=== PATIENT | female | born 1995 | race Caucasian/White ===

== ENCOUNTER 2018-02-11 08:52 | Emergency (ER) | payer OTHER ==
--- NOTE | 2018-02-11 08:55 | EDM.PDOC ---
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 Pt states that she fell well all morning. 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 Pt states that she felt a brief wave of nausea and lightheadedness that lasted a few seconds. Now pt states that she feels completely well and normal. She denies headache, orthostatic dizziness, chest pain, fever, chills, abdominal pain, heavy periods, palpitations, or any other symptoms. Onset: Today, Sudden Duration: Resolved Prior to Arrival Location: Reports: Generalized Improves with: Reports: None Worsens with: Reports: None Associated Symptoms: Reports: No Other Symptoms - Related Data Allergies Allergy/AdvReac Type Severity Reaction Status Date / Time No Known Allergies Allergy Verified 02/11/18 08:53 Home Meds: Home Meds ALPRAZolam [Xanax] 0.25 mg PO Q4HR PRN 02/11/18 [History] Escitalopram [Lexapro] 10 mg PO DAILY 02/11/18 [History] Propranolol [Inderal] 10 mg PO DAILY 02/11/18 [History] Past Medical History - Past Health History Medical/Surgical History: Denies Medical/Surgical History Psychiatric History: Reports: Anxiety Social & Family History - Family History Family Medical History: Noncontributory - Tobacco Use Smoking Status *Q: Never Smoker - Living Situation & Occupation Occupation: Employed ED ROS GENERAL - Review of Systems Review Of Systems: ROS reveals no pertinent complaints other than HPI. ED EXAM, GENERAL - Physical Exam Exam: See Below Exam Limited By: No Limitations General Appearance: Alert, WD/WN, No Apparent Distress Eye Exam: Bilateral Eye: EOMI, Normal Inspection Ears: Hearing Grossly Normal Nose: Normal Inspection, Normal Mucosa, No Blood Throat/Mouth: Normal Inspection, Normal Lips, Normal Teeth, Normal Gums, Normal Oropharynx, Normal Voice, No Airway Compromise Head: Atraumatic, Normocephalic Neck: Normal Inspection, Full Range of Motion Respiratory/Chest: No Respiratory Distress, Lungs Clear, Normal Breath Sounds, No Accessory Muscle Use, Chest Non-Tender Cardiovascular: Normal Peripheral Pulses, Regular Rate, Rhythm, No Edema, No Gallop, No JVD, No Murmur, No Rub GI/Abdominal: Normal Bowel Sounds, Soft, Non-Tender (Female) Exam: Deferred Rectal (Female) Exam: Deferred Back Exam: Normal Inspection, Full Range of Motion Extremities: Normal Inspection, Normal Range of Motion, Non-Tender, No Pedal Edema, Normal Capillary Refill. No: Star's Sign Neurological: Alert, Oriented, CN II-XII Intact, Normal Cognition, Normal Gait, No Motor/Sensory Deficits Psychiatric: Normal Affect, Normal Mood Skin Exam: Warm, Dry, Intact, Normal Color, No Rash EKG INTERPRETATION EKG Date: 02/11/18 Time: 09:02 Rhythm: Other (SR) Rate (Beats/Min): 61 [place]: Normal P-Wave: Present QRS: Normal ST-T: Other (Nonspecific T abnormalities in Ant/Lat. leads) QT: Normal Comparison: NA - No Prior EKG EKG Interpretation Comments: No acute ischemic changes. Course - Vital Signs Last Recorded V/S: Last Vital Signs Temp 36.2 C 02/11/18 08:55 Pulse 73 02/11/18 08:55 Resp 15 02/11/18 08:55 BP 128/87 02/11/18 08:55 Pulse Ox 99 02/11/18 08:55 Orthostatic Blood Pressure [ 121/90 Standing] Orthostatic Blood Pressure [ 122/92 Sitting] Orthostatic Blood Pressure [ 115/70 Supine] No othostatic dizziness. - Orders/Labs/Meds Orders: Active Orders 24 hr Category Date Time Status Blood Glucose Check, Bedside [RC] ONETIME Care 02/11/18 08:58 Active EKG 12 Lead [EKG Documentation Completion] [RC] STAT Care 02/11/18 08:57 Active Orthostatic Vital Signs [RC] ASDIRECTED Care 02/11/18 08:57 Active Labs: Laboratory Tests 02/11/18 02/11/18 02/11/18 Range/Units 09:05 09:05 09:05 WBC 10.9 H (5.0-10.0) 10^3/uL RBC 4.81 (4.2-5.4) 10^6/uL Hgb 13.9 (12.0-16.0) g/dL Hct 41.1 (37.0-47.0) % MCV 85.4 (80-100) fL MCH 28.9 (27.0-34.0) pg MCHC 33.8 (33.0-35.0) g/dL Plt Count 262 (150-450) 10^3/uL Neut % (Auto) 65.7 (42.2-75.2) % Lymph % (Auto) 26.6 (20.5-50.1) % [place] % (Auto) 6.5 (2-8) % Eos % (Auto) 1.0 (1.0-3.0) % Baso % (Auto) 0.2 (0.0-1.0) % D-Dimer, Quantitative < 100 (0-400) ng/mL Sodium 135 (135-145) mmol/L Potassium 3.9 (3.6-5.0) mmol/L Chloride 97 L (101-111) mmol/L Carbon Dioxide 27.0 (21.0-31.0) mmol/L Anion Gap 14.9 BUN 19 H (7-18) mg/dL Creatinine 1.0 (0.6-1.3) mg/dL Est Cr Clr Drug Dosing 97.79 mL/min Estimated GFR (MDRD) > 60 BUN/Creatinine Ratio 19.00 Glucose 89 (74-105) mg/dL POC Glucose (70-105) mg/dl Calcium 9.5 (8.4-10.2) mg/dl Total Bilirubin 0.8 (0.2-1.0) mg/dL AST 28 (10-42) IU/L ALT 22 (10-60) IU/L Alkaline Phosphatase 61 (42-121) IU/L Troponin I < 0.02 (0.00-0.02) ng/ml Total Protein 8.1 (6.7-8.2) g/dl Albumin 4.4 (3.2-5.5) g/dl Globulin 3.7 Albumin/Globulin Ratio 1.19 Urine Color (YELLOW) Urine Appearance (CLEAR) Urine pH (5.0-9.0) Ur Specific [place] (1.005-1.030) Urine Protein (NEGATIVE) Urine Glucose (UA) (NEGATIVE) Urine Ketones (NEGATIVE) Urine Occult Blood (NEGATIVE) Urine Nitrite (NEGATIVE) Urine Bilirubin (NEGATIVE) Urine Urobilinogen (0.2-1.0) mg/dL Ur Leukocyte Esterase (NEGATIVE) Urine RBC /HPF Urine WBC (0-5/HPF) /HPF Ur Epithelial Cells /HPF Amorphous Sediment (0/HPF) /HPF Urine Bacteria (0-FEW/HPF) /HPF Urine Mucus /LPF Urine HCG, Qual Urine Opiates Screen (NEGATIVE) Ur Oxycodone Screen (NEGATIVE) Urine Methadone Screen (NEGATIVE) Ur Barbiturates Screen (NEGATIVE) U Tricyclic Antidepress (NEGATIVE) Ur Phencyclidine Scrn (NEGATIVE) Ur Amphetamine Screen (NEGATIVE) U Methamphetamines Scrn (NEGATIVE) Urine MDMA Screen (NEGATIVE) U Benzodiazepines Scrn (NEGATIVE) Urine Cocaine Screen (NEGATIVE) U Marijuana (THC) Screen (NEGATIVE) 02/11/18 02/11/18 02/11/18 Range/Units 09:06 09:16 09:16 WBC (5.0-10.0) 10^3/uL RBC (4.2-5.4) 10^6/uL Hgb (12.0-16.0) g/dL Hct (37.0-47.0) % MCV (80-100) fL MCH (27.0-34.0) pg MCHC (33.0-35.0) g/dL Plt Count (150-450) 10^3/uL Neut % (Auto) (42.2-75.2) % Lymph % (Auto) (20.5-50.1) % [place] % (Auto) (2-8) % Eos % (Auto) (1.0-3.0) % Baso % (Auto) (0.0-1.0) % D-Dimer, Quantitative (0-400) ng/mL Sodium (135-145) mmol/L Potassium (3.6-5.0) mmol/L Chloride (101-111) mmol/L Carbon Dioxide (21.0-31.0) mmol/L Anion Gap BUN (7-18) mg/dL Creatinine (0.6-1.3) mg/dL Est Cr Clr Drug Dosing mL/min Estimated GFR (MDRD) BUN/Creatinine Ratio Glucose (74-105) mg/dL POC Glucose 79 (70-105) mg/dl Calcium (8.4-10.2) mg/dl Total Bilirubin (0.2-1.0) mg/dL AST (10-42) IU/L ALT (10-60) IU/L Alkaline Phosphatase (42-121) IU/L Troponin I (0.00-0.02) ng/ml Total Protein (6.7-8.2) g/dl Albumin (3.2-5.5) g/dl Globulin Albumin/Globulin Ratio Urine Color Yellow (YELLOW) Urine Appearance Slightly cloudy (CLEAR) Urine pH 5.5 (5.0-9.0) Ur Specific [place] >= 1.030 (1.005-1.030) Urine Protein 30 H (NEGATIVE) Urine Glucose (UA) Negative (NEGATIVE) Urine Ketones Trace H (NEGATIVE) Urine Occult Blood Trace-intact H (NEGATIVE) Urine Nitrite Negative (NEGATIVE) Urine Bilirubin Small H (NEGATIVE) Urine Urobilinogen 0.2 (0.2-1.0) mg/dL Ur Leukocyte Esterase Negative (NEGATIVE) Urine RBC 0-5 /HPF Urine WBC 5-10 H (0-5/HPF) /HPF Ur Epithelial Cells Many H /HPF Amorphous Sediment Rare (0/HPF) /HPF Urine Bacteria Many H (0-FEW/HPF) /HPF Urine Mucus Few H /LPF Urine HCG, Qual Negative Urine Opiates Screen (NEGATIVE) Ur Oxycodone Screen (NEGATIVE) Urine Methadone Screen (NEGATIVE) Ur Barbiturates Screen (NEGATIVE) U Tricyclic Antidepress (NEGATIVE) Ur Phencyclidine Scrn (NEGATIVE) Ur Amphetamine Screen (NEGATIVE) U Methamphetamines Scrn (NEGATIVE) Urine MDMA Screen (NEGATIVE) U Benzodiazepines Scrn (NEGATIVE) Urine Cocaine Screen (NEGATIVE) U Marijuana (THC) Screen (NEGATIVE) 02/11/18 Range/Units 09:16 WBC (5.0-10.0) 10^3/uL RBC (4.2-5.4) 10^6/uL Hgb (12.0-16.0) g/dL Hct (37.0-47.0) % MCV (80-100) fL MCH (27.0-34.0) pg MCHC (33.0-35.0) g/dL Plt Count (150-450) 10^3/uL Neut % (Auto) (42.2-75.2) % Lymph % (Auto) (20.5-50.1) % [place] % (Auto) (2-8) % Eos % (Auto) (1.0-3.0) % Baso % (Auto) (0.0-1.0) % D-Dimer, Quantitative (0-400) ng/mL Sodium (135-145) mmol/L Potassium (3.6-5.0) mmol/L Chloride (101-111) mmol/L Carbon Dioxide (21.0-31.0) mmol/L Anion Gap BUN (7-18) mg/dL Creatinine (0.6-1.3) mg/dL Est Cr Clr Drug Dosing mL/min Estimated GFR (MDRD) BUN/Creatinine Ratio Glucose (74-105) mg/dL POC Glucose (70-105) mg/dl Calcium (8.4-10.2) mg/dl Total Bilirubin (0.2-1.0) mg/dL AST (10-42) IU/L ALT (10-60) IU/L Alkaline Phosphatase (42-121) IU/L Troponin I (0.00-0.02) ng/ml Total Protein (6.7-8.2) g/dl Albumin (3.2-5.5) g/dl Globulin Albumin/Globulin Ratio Urine Color (YELLOW) Urine Appearance (CLEAR) Urine pH (5.0-9.0) Ur Specific [place] (1.005-1.030) Urine Protein (NEGATIVE) Urine Glucose (UA) (NEGATIVE) Urine Ketones (NEGATIVE) Urine Occult Blood (NEGATIVE) Urine Nitrite (NEGATIVE) Urine Bilirubin (NEGATIVE) Urine Urobilinogen (0.2-1.0) mg/dL Ur Leukocyte Esterase (NEGATIVE) Urine RBC /HPF Urine WBC (0-5/HPF) /HPF Ur Epithelial Cells /HPF Amorphous Sediment (0/HPF) /HPF Urine Bacteria (0-FEW/HPF) /HPF Urine Mucus /LPF Urine HCG, Qual Urine Opiates Screen Negative (NEGATIVE) Ur Oxycodone Screen Negative (NEGATIVE) Urine Methadone Screen Negative (NEGATIVE) Ur Barbiturates Screen Negative (NEGATIVE) U Tricyclic Antidepress Negative (NEGATIVE) Ur Phencyclidine Scrn Negative (NEGATIVE) Ur Amphetamine Screen Negative (NEGATIVE) U Methamphetamines Scrn Negative (NEGATIVE) Urine MDMA Screen Negative (NEGATIVE) U Benzodiazepines Scrn Positive H (NEGATIVE) Urine Cocaine Screen Negative (NEGATIVE) U Marijuana (THC) Screen Negative (NEGATIVE) Departure - Departure Time of Disposition: 09:37 Disposition: Home, Self-Care 01 Condition: Good Clinical Impression: Vasovagal syncope, Dehydration Instructions: Dehydration, Adult, Vasovagal Syncope, Adult Forms: ED Department Discharge Additional Instructions: Drink plenty of water. Activity as tolerated. Follow up in clinic for recheck in 2 to 3 days. Return to ER if you have any lightheadedness, fainting, or any other concerning symptoms. - My Orders Last 24 Hours: My Active Orders 02/11/18 08:57 EKG 12 Lead [EKG Documentation Completion] [RC] STAT Orthostatic Vital Signs [RC] ASDIRECTED 02/11/18 08:58 Blood Glucose Check, Bedside [RC] ONETIME - Assessment/Plan Last 24 Hours: My Active Orders 02/11/18 08:57 EKG 12 Lead [EKG Documentation Completion] [RC] STAT Orthostatic Vital Signs [RC] ASDIRECTED 02/11/18 08:58 Blood Glucose Check, Bedside [RC] ONETIME
[2018-02-11 09:32] LABS: ANION GAP 14.9; CHLORIDE,CL 97 mmol/L (101-111); SODIUM,NA 135 mmol/L (135-145)
== END 2018-02-11 09:41 | disposition home or self-care (01) ==
LOC: DL.ED 08:52
DX: E86.0 Dehydration (principal); R55 Syncope and collapse
CPT/HCPCS: 36415; 80053; 80305-QW; 81001; 81025; 82962; 84484; 85025; 85379; 93005; 99284

== ENCOUNTER 2020-11-09 18:58 | Inpatient (IN) | payer BC ==
[2020-11-09] MEDS: Lactated Ringers 1,000 ML IV SCH ×2 (20:55→21:20)
[2020-11-09] MEDS ORDERED: Labetalol 20 MG/4 ML Syringe IVPUSH ONE (20:55)
[2020-11-09] MEDS ORDERED: Tranexamic Acid 1,000 MG in Sodium Chloride 0.9% 100 ML IV PRN (20:56)
[2020-11-09] MEDS ORDERED: Lidocaine 1% 30 ML SDV INJECT PRN (20:56)
[2020-11-09] MEDS ORDERED: Methylergonovine 0.2 MG/1 ML Amp IM PRN (20:56)
[2020-11-09] MEDS ORDERED: Sodium Chloride 0.9% 10 ML Syringe FLUSH PRN (20:56)
[2020-11-09] MEDS ORDERED: Carboprost Tromethamine 250 MCG/1 ML Amp IM PRN (20:56)
[2020-11-09] MEDS ORDERED: Misoprostol 400 MCG (4 X 100 MCG TAB) RECTAL PRN (20:56)
[2020-11-09] MEDS ORDERED: Lactated Ringers 1,000 ML IV ONE (20:56)
[2020-11-09] MEDS ORDERED: Acetaminophen 325 MG Tab PO PRN (20:56)
[2020-11-09] MEDS ORDERED: Ondansetron 4 MG/2 ML SDV IVPUSH PRN (20:56)
[2020-11-09] MEDS ORDERED: Oxytocin/Normal Saline 30 UNIT/500 ML BAG IV SCH (21:00)
[2020-11-09] MEDS ORDERED: ePHEDrine 50 MG/ML SDV IVPUSH PRN (21:00)
[2020-11-09] MEDS ORDERED: Lactated Ringers 500 ML IV SCH ×2 (21:00)
[2020-11-09] MEDS ORDERED: Naloxone 2 MG/2 ML Syringe IVPUSH PRN (21:00)
[2020-11-09] MEDS ORDERED: Promethazine 25 MG/ML SDV IM PRN (21:00)
[2020-11-09] MEDS ORDERED: fentaNYL 100 MCG/2 ML SDV ONE (21:10)
[2020-11-09] MEDS ORDERED: EPINEPHrine 1 MG/1 ML Amp ONE (21:10)
[2020-11-09] MEDS ORDERED: Sodium Bicarbonate 4.2% 2.5 MEQ/5 ML SDV ONE (21:11)
[2020-11-09] MEDS ORDERED: Magnesium Sulfate/Water 4 GM in Premix Bag 1 BAG IV ONE (21:42)
--- NOTE | 2020-11-09 21:49 | PCM.SN.2 ---
- Free Text/Narrative Note: Intrathecal. Sitting position, sterile prep and drape. 1% lidocaine w bicarb x 2 to L3 L4 and L2 L3 interspace. Introducer x3, 24 Ga pencan x3. Pos CSF at L2 L3 interspace, neg heme, neg parasthesia. 0.1 ml pf 1:1000 epi, 20 mcg pf sufenta, 30 mcg pf fentanyl, 0.4 ml pf NS and 6 mg of 0.75 % pf marcaine injected after CSF aspiration. Pt to L lateral position. Procedure time 2105 to 214
[2020-11-09] MEDS ORDERED: Magnesium Sulfate/Water 20 GM/500 ML BAG IV SCH (22:00)
[2020-11-09] MEDS: Magnesium Sulfate/Water 20 GM/500 ML BAG IV SCH (23:17)
[2020-11-10] MEDS ORDERED: EPINEPHrine 1 MG/1 ML Amp ONE (00:01)
[2020-11-10] MEDS ORDERED: Sodium Chloride 0.9% 20 ML SDV ONE (00:01)
[2020-11-10] MEDS ORDERED: fentaNYL 100 MCG/2 ML SDV ITHECAL ONE (00:01)
[2020-11-10] MEDS ORDERED: Sodium Bicarbonate 4.2% 2.5 MEQ/5 ML SDV ONE (00:01)
[2020-11-10] MEDS ORDERED: Simethicone 80 MG Tab.Chew PO PRN (02:06)
[2020-11-10] MEDS ORDERED: Benzocaine/Menthol 20%-0.5% Spray 78 GM Cannister TOP PRN (02:06)
--- NOTE | 2020-11-10 03:07 | DEL ---
DATE: 11/10/2020 PREPROCEDURE DIAGNOSES: 1. 38-2/7 weeks intrauterine . 2. 1 para 0. 3. Preeclampsia. 4. Mood disorder. 5. Blood type O positive, rubella immune. Group B strep negative. POSTPROCEDURE DIAGNOSES: 1. 38-2/7 weeks intrauterine . 2. 1 para 1001. 3. Preeclampsia. 4. Mood disorder. 5. Blood type O positive, rubella immune. Group B strep negative. 6. hemorrhage plus spontaneous vaginal delivery with periurethral and second-degree laceration repairs. BRIEF HISTORY: A 25-year-old female who presented to the hospital in active labor, feeling that labor started at approximately 2 o'clock in the morning and was complaining mostly of cramping throughout the day. On 1st check here in the hospital, she was 6 cm and 95%. She had spontaneous rupture of membranes at approximately 1640 on 11/09/2020. She had an intrathecal during labor for pain relief. Once complete, we let her labor down for an extra half an hour or so until she could start feeling her contractions and more of an urge to push and she pushed for baby 35 minutes with delivery details as below. Please see admission history and physical for additional details. During labor, the strip was category 1 with some recurrent deep variables, but maintained moderate beat- to-beat variability. DETAILS: The patient in dorsal lithotomy position, she delivered a viable female infant over intact perineum in the LATOSHA position. Baby was dried, stimulated. Mouth and nose bulb suctioned and placed on mother's abdomen. After a delay, 3-vessel umbilical cord was doubly clamped and cut, and cord blood sample obtained. Placenta was then delivered by gentle cord traction and concomitant uterine massage accompanied by a large gush of blood and requiring uterine massage and running Pitocin at 999 to control the brisk bleeding, but that was achieved quickly. Upon inspection, there was a right-sided periurethral laceration extending on to the labia with an accompanying skin split. The laceration was repaired with a running stitch of 4-0 Vicryl in usual fashion. The skin split was hemostatic. Therefore, I did not choose to repair that. The patient was becoming more edematous and identification of landmarks getting more difficult. The second-degree perineal laceration was repaired with 3-0 Vicryl in usual fashion with good skin approximation and hemostasis achieved. The patient tolerated the procedure well. COMPLICATIONS: None. ESTIMATED BLOOD LOSS: 600 mL. FINDINGS: Viable female infant; weight 3215 g, 7 pounds 1 ounce, born at 1:07 a.m. on 11/10/2020. Apgars 8 & 9. DISPOSITION: Mother and baby in the room. They have already initiated skin to skin and . [facility] /[id number] MTDD
--- NOTE | 2020-11-10 07:56 | HP ---
CHIEF COMPLAINT: Contractions and spontaneous rupture of membranes, clear fluid. HISTORY OF PRESENT ILLNESS: A 25-year-old 1, para 0, currently at 38- 1/7 weeks' gestation, presents to Labor and Delivery reporting that she has been cramping all day long. 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 Fluid was noted to be clear. Contractions have gotten stronger and closer together since that time, currently 2 minutes apart. She reports having increased swelling over the past few days, but denies any headaches, blurry vision, chest pain, shortness of breath. Denies that any blood pressures have been checked in the last day or so and that previously they had not been elevated in the clinic. She generally ran pressures in the one-teens over 60s and 70s. At her 38-week visit yesterday, blood pressure was 128/78. She feels lot of this elevation may be due to anxiety with the contractions as well as pain. Denies any other acute concerns at this time. Has not had any bleeding and movement has remained good. PAST MEDICAL HISTORY: Asthma, injury of right shoulder, refractive error, history of left ankle sprain, recurrent injury. PAST SURGICAL HISTORY: Dental implants and tonsillectomy and adenoidectomy. FAMILY HISTORY: Mother alive and well. Father, history of ischemic stroke. Brother, no known diseases. Sister with asthma. Maternal grandfather with history of heart attack. Paternal grandfather with history of heart attack and coronary artery disease. Negative family history for sudden , anesthesia problems, bleeding problems, clotting disorders, defects, multiple births, cystic fibrosis, and seizures. SOCIAL HISTORY: Working as a nurse in the emergency department here at [employer] and lives with her boyfriend and 2 of his children. Her boyfriend is Rico Corral and he works for [employer] ambulance and also does fighting for [employer] and some cattle ranching. This will be their first child together, his fourth child in total. They have 2 cats and 1 dog. MEDICATIONS: Albuterol inhaler as needed, not used recently; BuSpar 15 mg twice daily; Colace 100 mg twice daily; iron 325 mg twice daily; vitamin once daily; venlafaxine 150 mg extended release once daily. ALLERGIES: Adhesive tape causes rash, shortness of breath, wheezing, and chest tightness. REVIEW OF SYSTEMS: No recent fevers, chills, nausea, vomiting, chest pain, shortness of breath, headaches, blurry vision, skin rashes, other signs of significant illness or problems with the . LABORATORY: Blood type O positive. Antibody screen negative. Last hemoglobin was 11.6 on 09/27/2020. Platelets 235. Group B strep negative. Rubella immune. Syphilis nonreactive. Urine culture negative. Hepatitis B negative. HIV negative. Gonorrhea, chlamydia negative. TSH 0.88 in the first trimester. Hepatitis C negative. Wet prep previously had been positive for yeast in the first trimester and that was treated. OBJECTIVE: Vital Signs: First blood pressure 186/109, pulse of 80, temperature is 97.8, respiratory rate of 20. Head: Normocephalic. Unremarkable to gross evaluation. Neck: Supple. Heart: Regular without murmur. Lungs: Clear to auscultation bilaterally. Abdomen: Gravid uterus, soft, firm with contractions. Vertex presentation. heart tones 150 beats per minute at baseline with moderate died-re-uzeb variability. Accelerations toward the end of the monitoring strip making it category 1. [place] shows contractions about every 2 minutes. Cervix 6 cm, 95% effaced. Station was not reported by the examining nurse. Extremities: 2+ edema. Neurological: No obvious focal deficits, but reflexes are 2+ and equal. Clonus is 1+. LABS: Laboratory returned. WBCs 13.8, hemoglobin 12.8, hematocrit 37.2, platelets 223. BUN, creatinine, uric acid, AST, ALT, and lactate dehydrogenase all within normal limits. Urinalysis: 30 of protein on dipstick, trace occult blood, protein creatinine ratio of 0.483. SARS-CoV-2 RNA test is negative. ASSESSMENT: 1. 38-1/7 weeks' intrauterine in a 1, para 0 patient in active labor. 2. Elevated blood pressures, and ruled in for preeclampsia 3. Active labor. PLAN: Expectant management of labor at this time. The patient may have an intrathecal if so desired. We will treat with labetalol 10 mg IV to start and see how her pressures respond. For preeclampsia will initiate magnesium sulfate. She is group B strep negative. I do not anticipate need to give antibiotics during labor. Carefully controlling her blood pressures. [facility] /[id number] MTDD
[2020-11-10] MEDS: Docusate Sodium 100 MG Cap PO PRN ×2 (08:16→22:03)
[2020-11-10] MEDS: Ferrous Sulfate 325 MG Tab PO SCH (08:16)
[2020-11-10] MEDS: Prenatal Multivitamin with Calcium/Folic Acid/Iron Tab PO SCH (08:16)
[2020-11-10] MEDS: Ibuprofen 800 MG Tab PO PRN ×2 (08:17→22:03)
[2020-11-10] MEDS: Venlafaxine 37.5 MG Cap.ER PO SCH (08:19)
[2020-11-10] MEDS: Magnesium Sulfate/Water 20 GM/500 ML BAG IV SCH ×2 (09:14→19:17)
[2020-11-10] MEDS ORDERED: Witch Hazel Medicated Pads 100/Jar TOP PRN (22:04)
--- NOTE | 2020-11-11 07:31 | PN ---
DATE: 11/10/2020 SUBJECTIVE: day 0, a 25-year-old 1, now para 1-0-0-1, status post spontaneous vaginal delivery with a second-degree anterior urethral laceration, reports that she has been doing overall fairly well. Bleeding has slowed down. No chest pain, shortness of breath, blurry vision, or headaches. Edema has improved slightly, but she still has yet to diurese as we would expect. She reports when she did get up the first time this morning, she did have an issue of getting a little bit lightheaded and having some pallor and was helped back to bed. Since then, she has gotten up with the nurses a couple of times and things have gone well, and she denies other acute concerns or complaints. OBJECTIVE: Vital Signs: Temperature is 98.1, pulse 80, blood pressure 130/79, respiratory rate of 16, and O2 saturation 100% on room air. Since delivery, the patient's blood pressures have been ranging from 108 to 140 at the highest, mostly in the 120s, diastolics are in the 70s, and she has not received anything further for blood pressure control. HEART: Regular without murmur. LUNGS: Clear to auscultation bilaterally. ABDOMEN: Soft and nontender. Fundus is firm and below the umbilicus. EXTREMITIES: 1+ edema bilaterally. NEUROLOGICAL: Reflexes remain 2+ and no further clonus at this time. No focal deficits are noted. LABORATORY: hemoglobin of 10.3 and platelets 189. Magnesium levels have been 4.5 and 4.9 respectively. Next one will be due around 9 o'clock this evening. ASSESSMENT: 1. day 0 status post spontaneous vaginal delivery. 2. Preeclampsia, currently on magnesium sulfate. 3. History of anxiety. 4. Blood type O positive, rubella immune, and group B Streptococcus negative. 5. hemorrhage due to uterine atony, controlled with bimanual massage and uterotonic agents. PLAN: Continue magnesium sulfate until full 24 hours has been completed. This will likely be the last magnesium level coming up here shortly. We will be monitoring her blood pressures very closely and treating as needed. She is and will continue working with the consultant in ergonomics and safety. We will be anticipating discharge home on day #2. RAFFI Marrero #: [id number] MTDD
[2020-11-11] MEDS: Ibuprofen 800 MG Tab PO PRN ×2 (08:29→20:22)
[2020-11-11] MEDS: Docusate Sodium 100 MG Cap PO PRN ×2 (08:29→20:22)
[2020-11-11] MEDS: Prenatal Multivitamin with Calcium/Folic Acid/Iron Tab PO SCH (08:29)
[2020-11-11] MEDS: Venlafaxine 37.5 MG Cap.ER PO SCH (08:29)
[2020-11-11] MEDS: Ferrous Sulfate 325 MG Tab PO SCH (08:29)
--- NOTE | 2020-11-12 08:00 | PN ---
DATE: 11/11/2020 The patient seen around 7 o'clock this morning, but delayed dictation due to being called to the operating room and then I forget to do the dictation until now. SUBJECTIVE: day #1, spontaneous vaginal delivery with second-degree laceration and periurethral laceration repairs. She reports the bleeding has been better since yesterday. seems to be going well. No chest pain. No shortness of breath. No headaches or blurry vision. No right upper quadrant pain. No further dizziness or lightheadedness. Tolerating the magnesium sulfate, and blood pressures have been good. Nursing staff reports no problems overnight. OBJECTIVE: Vital Signs: Temperature is 99.2, pulse 75, blood pressure 132/87, respiratory rate of 16. Heart: Regular without murmurs. Lungs: Clear to auscultation bilaterally. Abdomen: Soft, nontender. Positive bowel sounds, and uterus is firm and below the umbilicus. Extremities: 2+ edema. No erythema or tenderness noted. Reflexes 2+ and equal. No clonus this morning. LABORATORY DATA: Hemoglobin is 10.3, platelets 189. ASSESSMENT: 1. 1, para 1-0-0-1. 2. Status post spontaneous vaginal delivery with laceration repairs. 3. Preeclampsia. Blood pressure is improved at this time, not requiring blood pressure medication. 4. History of anxiety. 5. mother. PLAN: Anticipate normal cares and continued monitoring for potential complications from preeclampsia and hemorrhage. The patient will continue on her routine home medications and routine postvaginal delivery medications. Anticipating discharge home tomorrow. [facility] /[id number]
[2020-11-12] MEDS: Ferrous Sulfate 325 MG Tab PO SCH (08:46)
[2020-11-12] MEDS: Docusate Sodium 100 MG Cap PO PRN (08:46)
[2020-11-12] MEDS: Venlafaxine 37.5 MG Cap.ER PO SCH (08:47)
[2020-11-12] MEDS: Prenatal Multivitamin with Calcium/Folic Acid/Iron Tab PO SCH (08:47)
[2020-11-12] MEDS: Ibuprofen 800 MG Tab PO PRN (08:49)
--- NOTE | 2020-11-12 13:45 | DISCH ---
ADMITTING DIAGNOSES: 1. 38-1/7 weeks intrauterine . 2. 1, para 0. 3. Preeclampsia. 4. Anxiety with mood disorder. 5. Blood type O-positive, rubella immune, and group B Streptococcus negative. DISCHARGE DIAGNOSES: 1. 38-2/7 weeks intrauterine . 2. 1, para 1-0-0-1. 3. Preeclampsia. 4. Anxiety with mood disorder. 5. Blood type O-positive, rubella immune, and group B Streptococcus negative. 6. hemorrhage. 7. Status post spontaneous vaginal delivery with periurethral and second- degree laceration repairs. BRIEF HISTORY: A 25-year-old female admitted to the hospital with spontaneous onset of labor, found to have significantly elevated blood pressures upon admission with an initial blood pressure of 186/109, then 152/95, and 189/105. Consideration for anxiety and pain and preeclampsia labs were collected, and she was given a dose of IV labetalol. She did rule in for preeclampsia with a protein-creatinine ratio of 483. Other labs for renal or kidney damage were negative, and she was started on magnesium sulfate, and this was continued for 24 hours after delivery, and the patient tolerated it well. Delivery was a spontaneous vaginal delivery with intrathecal for anesthesia. She was in labor for about 23 hours total including the time prior to arrival at the hospital. She was in stage II for 35 minutes and stage III was only about 5 minutes. She did have some hemorrhage due to uterine atony, which was controlled with bimanual massage and running Pitocin at 999 and she has tolerated that quite well. After delivery, she had one episode of lightheadedness and dizziness on day. After that, that seemed to resolve. She has had no other symptoms of preeclampsia and her edema has improved. Delivered a viable female infant at 38 weeks 2 days gestation, weighing 3215 g, scores of 8 and 9, and length 19 inches. DISCHARGE CONDITION: Good. The patient is doing well today. No chest pain or shortness of breath. She is tolerating regular diet, ambulating well, and voiding and stooling without difficulties. seems to be going well and she has no acute concerns. DISCHARGE EXAMINATION: Vital Signs: T 98.3, P 87, BP 145/96 then 139/89, RR 16, O2 sat 98%. Heart: Regular, without murmur. Lungs: Clear to auscultation bilaterally. Abdomen: Soft, nontender. Positive bowel sounds. Fundus is firm and below the umbilicus. Extremities: 1+ edema. No erythema or tenderness noted. Neurological: Reflexes and clonus have returned to normal. LABORATORY DATA: Admission hemoglobin 12.8, platelets 223. Discharge hemoglobin 10.3 and platelets 189. Protein-creatinine ratio was 483. Other [facility] [place] labs were within normal limits and can be reviewed in the computer. Highest magnesium level reached was 4.9, and she had no symptoms of magnesium toxicity. DISPOSITION: Home with family. MEDICATIONS: Ibuprofen 800 mg every 8 hours as needed for pain, Tylenol 650 mg every 6 hours as needed for pain, iron 325 mg twice daily with vitamin C, vitamin continue 1 daily, Effexor 150 mg extended-release once daily, BuSpar 15 mg once daily, and all-purpose nipple cream. FOLLOWUP: She will have her blood pressures checked in a couple of days and at the baby's 2-week appointment when she brings her in. She has ability to check her blood pressures at home and is well aware of preeclamptic symptoms. Otherwise, we will see her for a 6-week check, sooner if any problems arise. INSTRUCTIONS: Verified patient's knowledge about signs and symptoms of preeclampsia and what to watch for. Also discussed signs and symptoms of depression and reasons and indications to seek out for additional help. She does have followup scheduled within next couple of weeks with her mental health provider and can certainly talk to me in the meantime as well. DISPOSITION: Home with family. [facility] /[id number] [place] HOSPITALDiego
== END 2020-11-12 13:45 | disposition home or self-care (01) | DRG 560 ==
LOC: DL.OBCHECK 18:58 → DL.OB 20:56 → OBSVTOIN 11-10 01:07
PROVIDERS: ADMIT Family Medicine; ATTEND Family Medicine
PROC: 10E0XZZ Delivery of Products of Conception, External Approach (ICD-10-PCS; principal; 2020-11-10)
PROC: 0KQM0ZZ Repair Perineum Muscle, Open Approach (ICD-10-PCS; 2020-11-10)
DX: O14.94 Unspecified pre-eclampsia, complicating childbirth (principal); O99.344 Other mental disorders complicating childbirth; Z3A.38 38 weeks gestation of pregnancy; Z37.0 Single live birth; O72.1 Other immediate postpartum hemorrhage; O70.1 Second degree perineal laceration during delivery; F41.8 Other specified anxiety disorders; Z20.822 Contact with and (suspected) exposure to COVID-19
CPT/HCPCS: 36415; 59409; 81003; 82565; 82570; 83615; 83735; 84156; 84450; 84460; 84520; 84550; 85027; A9270-GY; J0171; J2590; J3010; J3475; J3490; J7120; U0002

== ENCOUNTER 2020-12-07 22:22 | Emergency (ER) | payer BC ==
[2020-12-07 23:49] LABS: ANION GAP 15.1 mEq/L (7-13); CHLORIDE,CL 109 mmol/L (98-107); SODIUM,NA 147 mmol/L (136-145)
--- NOTE | 2020-12-08 01:42 | US ---
PROCEDURE INFORMATION: Exam: US PELVIS LTD NON-OB Exam date and time: 12/07/2020 11:39 PM Age: 25 years old Clinical indication: Pain; Lmp or gestational age (in weeks): Post x4 weeks; Patient HX: Post 4 weeks, heavy bleeding starting this evening around 9:30; Additional info: Post bleeding TECHNIQUE: Imaging protocol: US PELVIS LTD NON-OB COMPARISON: No relevant prior studies available. FINDINGS: Other findings: Uterus is 8.4 x 7.3 x 6.5 cm. There is heterogeneous echogenic material within the endometrial cavity with blood flow noted. This likely represents retained products of conception. This region is approximately 2.8 x 2.8 cm. Right adnexa is unremarkable in appearance. Left adnexa is unremarkable in appearance. No free fluid within the pelvis. IMPRESSION: 1. Endometrial cavity echogenic heterogeneous material with intrinsic vascularity suggesting retained products of conception. 2. Bilateral adnexa are unremarkable. 3. No free fluid in the pelvis.
--- NOTE | 2020-12-08 02:02 | EDM.PDOC ---
ED HPI GENERAL MEDICAL PROBLEM - General Chief Complaint: [employer] Problem Stated Complaint: 4 WEEKS POST BLEEDING Time Seen by Provider: 12/07/20 22:55 Source of Information: Reports: Patient History Limitations: Reports: No Limitations - History of Present Illness INITIAL COMMENTS - FREE TEXT/NARRATIVE: Ed with c/o heavy Vaginal bleeding. 4 weeks post , light dark flow yesterday, this am small clot and then bright red bleeding, slowed during day then at 930 tonight, large clot and immediately saturated heavy pad, dark bleeding continued with few clots. Intermittent dizziness since delivery if change positions fast. No fever or chills. No nausea ovr vomiting. No abdominal pain or cramping. . - Related Data Allergies Allergy/AdvReac Type Severity Reaction Status Date / Time No Known Allergies Allergy Verified 12/07/20 22:55 Home Meds: Home Meds Venlafaxine [Effexor XR] 150 mg PO DAILY 11/10/20 [History] busPIRone [Buspar] 15 mg PO DAILY 11/10/20 [History] Acetaminophen [Tylenol] 650 mg PO Q4H PRN tablet 11/12/20 [Rx] Benzocaine/Menthol [Dermoplast Pain Relief 20%-0.5% [place]] 1 spray TOP Q4H PRN canister 11/12/20 [Rx] Docusate Sodium [Colace] 100 mg PO BID PRN cap 11/12/20 [Rx] Ferrous Sulfate 325 mg PO WITHBREAKFAST tablet 11/12/20 [Rx] Ibuprofen [Motrin] 800 mg PO Q8H PRN tablet 11/12/20 [Rx] Vit with Ca/FA/Iron [ Plus Iron] 1 each PO DAILY tablet 11/12/20 [Rx] Past Medical History - Past Health History Medical/Surgical History: Denies Medical/Surgical History Respiratory History: Reports: Asthma [employer] History: Reports: Musculoskeletal History: Reports: Other (See Below) Other Musculoskeletal History: Incomplete tear of rotator cuff. Left ankle sprain Psychiatric History: Reports: Anxiety - Infectious Disease History Infectious Disease History: Reports: None - Past Surgical History HEENT Surgical History: Reports: Tonsillectomy Social & Family History - Family History Family Medical History: No Pertinent Family History - Tobacco Use Tobacco Use Status *Q: Never Tobacco User - Caffeine Use Caffeine Use: Reports: Coffee Other Caffeine Use: once every 2 weeks - Recreational Drug Use Recreational Drug Use: No - Living Situation & Occupation Occupation: Employed ED ROS GENERAL - Review of Systems Review Of Systems: Comprehensive ROS is negative, except as noted in HPI. ED EXAM, RENAL/ - Physical Exam Exam: See Below Exam Limited By: No Limitations General Appearance: Alert, No Apparent Distress Ears: Normal External Exam Throat/Mouth: Normal Inspection Head: Atraumatic, Normocephalic Neck: Normal Inspection, Full Range of Motion Respiratory/Chest: No Respiratory Distress, Lungs Clear, Normal Breath Sounds Cardiovascular: Regular Rate, Rhythm, Irregularly Irregular GI/Abdominal: Normal Bowel Sounds (Female) Exam: Vaginal Bleeding (pooling in vaginal vault, grape size clots.) Extremities: Normal Inspection Neurological: Alert, Oriented Psychiatric: Normal Affect, Normal Mood Skin Exam: Warm, Dry, Intact, Pallor Course - Vital Signs Last Recorded V/S: Last Vital Signs Temp 97.4 F 12/07/20 22:50 Pulse Resp 16 12/07/20 22:50 BP 139/82 12/07/20 22:50 Pulse Ox 100 12/07/20 22:50 - Orders/Labs/Meds Labs: Laboratory Tests 12/07/20 12/07/20 12/07/20 Range/Units 23:19 23:19 23:19 WBC 5.6 (5.0-10.0) 10^3/uL RBC 3.89 L (4.2-5.4) 10^6/uL Hgb 11.7 L (12.0-16.0) g/dL Hct 34.8 L (37.0-47.0) % MCV 89.5 D (80-100) fL MCH 30.1 (27.0-34.0) pg MCHC 33.6 (33.0-35.0) g/dL Plt Count 299 D (150-450) 10^3/uL Neut % (Auto) 40.5 L (42.2-75.2) % Lymph % (Auto) 46.0 (20.5-50.1) % [place] % (Auto) 7.9 (2-8) % Eos % (Auto) 5.2 H (1.0-3.0) % Baso % (Auto) 0.4 (0.0-1.0) % PT 10.4 (9.0-12.0) SEC INR 1.0 (0.9-1.2) Sodium 147 H (136-145) mmol/L Potassium 4.1 (3.5-5.1) mmol/L Chloride 109 H (98-107) mmol/L Carbon Dioxide 27 (21-32) mmol/L Anion Gap 15.1 H (7-13) mEq/L BUN 13 (7-18) mg/dL Creatinine 0.68 (0.55-1.02) mg/dL Est Cr Clr Drug Dosing 140.12 mL/min Estimated GFR (MDRD) > 60 BUN/Creatinine Ratio 19.1 (No establ ref range) Glucose 99 (70-99) mg/dL Calcium 8.7 (8.5-10.1) mg/dL Total Bilirubin 0.2 (0.2-1.0) mg/dL AST 19 (15-37) U/L ALT 25 (14-59) U/L Alkaline Phosphatase 94 (46-116) U/L Total Protein 6.4 (6.4-8.2) g/dL Albumin 3.1 L (3.4-5.0) g/dL Globulin 3.3 Albumin/Globulin Ratio 0.94 HCG, Qual Positive - Re-Assessments/Exams Free Text/Narrative Re-Assessment/Exam: 12/08/20 02:[address] Lilly Lopez accepting patient for further eval and management, retained product of conception. Departure - Departure Time of Disposition: 02:07 Disposition: DC/Tfer to Acute Hospital 02 Condition: Good Clinical Impression: Retained products of conception - Discharge Information *PRESCRIPTION DRUG MONITORING PROGRAM REVIEWED*: No *COPY OF PRESCRIPTION DRUG MONITORING REPORT IN PATIENT SB: No Forms: ED Department Discharge Additional Instructions: Nothing to eat or drink Present to ER Jessica Pacheco Sepsis Event Note (ED) - Evaluation Sepsis Screening Result: No Definite Risk - Focused Exam Vital Signs: Vital Signs Temp Resp BP Pulse Ox 12/07/20 22:50 97.4 F 16 139/82 100
== END 2020-12-08 02:12 ==
LOC: DL.ED 22:22
DX: O72.2 Delayed and secondary postpartum hemorrhage (principal)
CPT/HCPCS: 36415; 76815; 80053; 84703; 85025; 85610; 99284; 99285-25

== ENCOUNTER 2023-12-15 18:30 | Inpatient (IN) | payer BC ==
[2023-12-15 18:55] LABS: HEMATOCRIT 32.5 % (37.0-47.0); HEMOGLOBIN 10.5 g/dL (12.0-16.0); MEAN CORPUSCULAR HEMOGLOBIN 26.5 pg (27.0-34.0); MEAN CORPUSCULAR HGB CONC 32.3 g/dL (33.0-35.0); MEAN CORPUSCULAR VOLUME 82.1 fL (80-100); RED BLOOD CELL COUNT 3.96 10^6/uL (4.2-5.4); WHITE BLOOD CELL COUNT,WBC 11.5 10^3/uL (5.0-10.0)
[2023-12-15 19:16] LABS: CREATININE,URINE RAND 239.93 mg/dL (No establ ref range); PROTEIN CREATININE RATIO,URINE 259.7 mg/g (<150.0); PROTEIN,URINE RANDOM 62.3 mg/dL (0.0-11.9)
[2023-12-15] MEDS ORDERED: Sodium Chloride 0.9% 10 ML Syringe FLUSH PRN ×2 (19:18→23:29)
[2023-12-15] MEDS ORDERED: Misoprostol 400 MCG (4 X 100 MCG TAB) RECTAL PRN ×2 (19:18→23:29)
[2023-12-15] MEDS ORDERED: Acetaminophen 325 MG Tab PO PRN (19:18)
[2023-12-15] MEDS ORDERED: Tranexamic Acid 1,000 MG in Sodium Chloride 0.9% 100 ML IV PRN ×2 (19:18→23:29)
[2023-12-15] MEDS ORDERED: Carboprost Tromethamine 250 MCG/1 ML Amp IM PRN ×2 (19:18→23:29)
[2023-12-15] MEDS ORDERED: Methylergonovine 0.2 MG/1 ML Amp IM PRN (19:18)
[2023-12-15] MEDS ORDERED: Ondansetron 4 MG/2 ML SDV IVPUSH PRN (19:18)
[2023-12-15] MEDS ORDERED: fentaNYL 100 MCG/2 ML SDV IVPUSH PRN (19:18)
[2023-12-15] MEDS: Lactated Ringers 1,000 ML IV SCH (19:22)
[2023-12-15] MEDS ORDERED: Bupivacaine 0.25% 10 ML SDV ONE (21:07)
[2023-12-15] MEDS ORDERED: fentaNYL 100 MCG/2 ML SDV ONE (21:07)
[2023-12-15] MEDS ORDERED: ePHEDrine 50 MG/ML SDV IVPUSH PRN (21:34)
[2023-12-15] MEDS ORDERED: Phenylephrine HCl In 0.9% NaCl 1 MG/10 ML Syringe IVPUSH PRN (21:34)
[2023-12-15] MEDS ORDERED: Ropivacaine 200 MG in Premix Bag 1 BAG EPIDUR SCH (21:45)
[2023-12-15] MEDS: Oxytocin/Normal Saline 30 UNIT/500 ML BAG IV SCH (23:13)
[2023-12-15] MEDS ORDERED: Oxytocin 10 Units/1 ML SDV IM PRN (23:29)
[2023-12-15] MEDS ORDERED: Hydrocortisone 2.5% Crm 30 GM Tube TOP PRN (23:29)
[2023-12-15] MEDS ORDERED: Simethicone 80 MG Tab.Chew PO PRN (23:29)
[2023-12-16] MEDS: Benzocaine/Menthol 20%-0.5% Spray 78 GM Cannister TOP PRN (02:40)
[2023-12-16] MEDS: Witch Hazel Medicated Pads 100/Jar TOP PRN (02:40)
[2023-12-16] MEDS: Acetaminophen 325 MG Tab PO PRN (03:00)
[2023-12-16] MEDS: Lactated Ringers 1,000 ML IV ONE (03:12)
[2023-12-16] MEDS: Lidocaine 1% 30 ML SDV INJECT ONE (04:50)
[2023-12-16] MEDS: Ibuprofen 800 MG Tab PO SCH ×2 (04:50→06:52)
[2023-12-16] MEDS: Prenatal Multivitamin with Calcium/Folic Acid/Iron Tab PO SCH (08:52)
[2023-12-16] MEDS: Ferrous Sulfate 325 MG Tab PO SCH (08:52)
[2023-12-16] MEDS: Docusate Sodium 100 MG Cap PO PRN (08:52)
== END 2023-12-17 12:50 | disposition home or self-care (01) | DRG 560 ==
LOC: DL.OBCHECK 18:30 → UNDOADMOB 18:48 → DL.OB 18:48 → OBSVTOIN 23:04
PROVIDERS: ADMIT Family Medicine; ATTEND Family Medicine
PROC: 10E0XZZ Delivery of Products of Conception, External Approach (ICD-10-PCS; principal; 2023-12-15)
PROC: 3E0R3BZ Introduction of Anesthetic Agent into Spinal Canal, Percutaneous Approach (ICD-10-PCS; 2023-12-15)
PROC: 00HU33Z Insertion of Infusion Device into Spinal Canal, Percutaneous Approach (ICD-10-PCS; 2023-12-15)
DX: O99.52 Diseases of the respiratory system complicating childbirth (principal); J45.909 Unspecified asthma, uncomplicated; O99.344 Other mental disorders complicating childbirth; F41.9 Anxiety disorder, unspecified; O99.02 Anemia complicating childbirth; D64.9 Anemia, unspecified; O13.4 Gestational [pregnancy-induced] hypertension without significant proteinuria, complicating childbirth; Z37.0 Single live birth; Z3A.39 39 weeks gestation of pregnancy; O66.0 Obstructed labor due to shoulder dystocia; O62.3 Precipitate labor
CPT/HCPCS: 36415; 59409; 82570; 84156; 85027; A9270-GY; J2590; J7120